=== PATIENT | female | born 1955 | race Caucasian/White ===

== ENCOUNTER 2021-09-12 20:59 | Emergency (ER) | payer MEDICARE, BC ==
[~2021-09-12] VITALS: Ht 175.3 cm; Wt 71.7 kg
[2021-09-12 22:30] VITALS: BP 137/87
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
[2021-09-12] MEDS ORDERED: AMOX-430 PO (22:48)
[2021-09-12] MEDS ORDERED: LIDOCAINE HCL/PF 1% 30 ML SDV ONE (22:48)
--- NOTE | 2021-09-12 22:51 | NUR ---
EMT AT BEDSIDE FOR WOUND CLEANING
[2021-09-12] MEDS ORDERED: TDAP [DIPH/PERTUSSIS/TET] 0.5 ML VIAL IM ONE ×2 (23:00)
[2021-09-12] MEDS ORDERED: AMOX/CLAVULANATE 875 MG TABLET PO ONE (23:00)
[2021-09-12] MEDS ORDERED: AMOX/CLAVULANATE 875 MG TABLET ONE (23:00)
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
== END 2021-09-12 23:30 | disposition home or self-care (01) ==
LOC: ER 21:13
DX: S51.812A Laceration without foreign body of left forearm, initial encounter (principal); W54.0XXA Bitten by dog, initial encounter; Y93.89 Activity, other specified; Y92.89 Other specified places as the place of occurrence of the external cause; Y99.8 Other external cause status
CPT/HCPCS: 12001; 90471; 90715; 99283; J3490